=== PATIENT | female | born 1960 | race African-American/Black ===

== ENCOUNTER 2020-03-07 15:36 | Outpatient (REF) | payer MEDICARE, SELFPAY ==
--- NOTE | 2020-03-07 | MM_ITS ---
EXAMINATION: MM SCREENING DIGITAL BREAST BILATERAL CLINICAL INFORMATION: Screening. Asymptomatic. Patient done without cholelithiasis due to being where atrial valve The lifetime risk of breast cancer based on the Tyrer-Cuzick Model is 6.8%. COMPARISON: Mammography: February 03, 2019 and studies dating back to August 19, 2016 TECHNIQUE: 2-D full-field imaging performed in craniocaudal and mediolateral oblique views along with computer-aided detection (CAD). FINDINGS: The breasts are heterogeneously dense, which may obscure small masses (ACR BI-RADS breast composition Category c). There are no significant masses, abnormal calcifications, or other abnormalities. MM/MM tomosynthesis screening BI IMPRESSION: There are no significant changes from prior study. ASSESSMENT: BI-RADS 1: Negative RECOMMENDATION: Routine annual mammography screening. This patient's information was entered into a reminder system with a target due date for their next mammogram.
== END 2020-03-07 15:37 | disposition home or self-care (01) ==
LOC: HO.MAMMO 15:36
PROVIDERS: PCP Nurse Practitioner Family; Visit Provider Nurse Practitioner Family
DX: Z12.31 Encounter for screening mammogram for malignant neoplasm of breast (principal)
CPT/HCPCS: 77063; 77067

== ENCOUNTER 2021-06-21 13:23 | Outpatient (REF) | payer MEDICARE, SELFPAY ==
--- NOTE | ~2021-06-21 | MM_ITS ---
EXAMINATION: MM SCREENING DIGITAL BREAST TOMOSYNTHESIS, BILATERAL CLINICAL INFORMATION: Screening. Asymptomatic. The lifetime risk of breast cancer based on the Tyrer-Cuzick Model is 7%. COMPARISON: Mammography: 03/07/2020, 02/03/2019, 01/18/2018 TECHNIQUE: Digital breast tomosynthesis is performed in both the craniocaudal and mediolateral oblique views along with computer-aided detection (CAD). Synthesized 2D images are generated from the tomosynthesis. FINDINGS: There are scattered areas of fibroglandular density (ACR BI-RADS breast composition Category b). There are no significant masses, abnormal calcifications, or other abnormalities. Parenchymal pattern is similar to prior studies. There are no significant changes. MM/MM tomosynthesis screening BI IMPRESSION: No mammographic evidence of malignancy. ASSESSMENT: BI-RADS 1: Negative RECOMMENDATION: Routine annual mammography screening. This patient's information was entered into a reminder system with a target due date for their next mammogram.
== END 2021-06-21 13:24 | disposition home or self-care (01) ==
LOC: HO.MAMMO 13:23
PROVIDERS: Visit Provider Nurse Practitioner Family
DX: Z12.31 Encounter for screening mammogram for malignant neoplasm of breast (principal)
CPT/HCPCS: 77063; 77067

== ENCOUNTER 2022-12-25 14:29 | Outpatient (REF) | payer MEDICARE, SELFPAY ==
--- NOTE | ~2022-12-25 | MM_ITS ---
EXAMINATION: MM SCREENING DIGITAL BREAST TOMOSYNTHESIS, BILATERAL CLINICAL INFORMATION: Screening. Asymptomatic. COMPARISON: Mammography: This study is compared with prior exams dating back to 2017. TECHNIQUE: Digital breast tomosynthesis is performed in both the craniocaudal and mediolateral oblique views along with computer-aided detection (CAD). Synthesized 2D images are generated from the tomosynthesis. FINDINGS: The breasts are heterogeneously dense, which may obscure small masses (ACR BI-RADS breast composition Category c). There are no significant masses, abnormal calcifications, or other abnormalities. The volume of fat within the breast in the subcutaneous tissues has decreased since the prior mammogram from June 2021. 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 MM/MM tomosynthesis screening BI IMPRESSION: No mammographic evidence of malignancy. Evidence of significant weight loss. Clinical correlation recommended. ASSESSMENT: BI-RADS BI-RADS 1 - Negative RECOMMENDATION: Routine annual mammography screening. 1 year F/U This examination should not preclude the clinical evaluation of a suspicious palpable abnormality. This patient's information was entered into a reminder system with a target due date for their next mammogram.
== END 2022-12-25 14:30 | disposition home or self-care (01) ==
LOC: HO.MAMMO 14:29
PROVIDERS: Visit Provider Nurse Practitioner Family
DX: Z12.31 Encounter for screening mammogram for malignant neoplasm of breast (principal)
CPT/HCPCS: 77063; 77067

== ENCOUNTER → 2022-12-25 14:45 | Outpatient (BNV) | payer MEDICARE, SELFPAY | PROVIDERS: Visit Provider Radiology Diagnostic Radiology | DX: Z12.31 Encounter for screening mammogram for malignant neoplasm of breast (principal) | CPT/HCPCS: 77063; 77067 ==

== ENCOUNTER 2024-12-02 14:26 | Outpatient (REF) | payer MEDICARE, OTHER, SELFPAY ==
--- OUTSIDE RECORDS SUMMARY | 2024-12-02 14:28 | XMS_ITS ---
Author Name [facility] Organization Unknown Care Team Organization Name Specialty Phone Email Start Date End Da te [facility] 11/30/2019 12/26/2019
--- OUTSIDE RECORDS SUMMARY | 2024-12-02 14:28 | XMS_ITS | Clinical Summary ---
Author Organization [address] [facility] Address [address] [place] [address] Phone Care Team Providers Care Slot Tag Inserter Name Role Phone Marck Shah MD Primary Care Provider [phone] Allergies No known active allergies Medications diazePAM (Valium) 5 mg tablet Take 2 tablets (10 mg total) by mouth 2 (two) times a day. Max Daily Amount: 20 mg 09/01/2011 Active multivitamin with minerals tablet Take 1 tablet by mouth 1 (one) time each day. Active lactulose (CHRONULAC) solution Take 15 mL (10 g total) by mouth 1 (one) time each day. 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 Surgical History Surgery Date Site/Laterality Comments COLONOSCOPY Medical History Medical History Date Comments Stiff person syndrome Colon polyp Stiff person syndrome Social History Tobacco Use Types Packs/Day Years Used Date Smoking Tobacco: Never Smokeless Tobacco: Never Tobacco Cessation:Counseling Given: Not Answered Alcohol Use Standard Drinks/Week Comments Not Currently 0 (1 standard drink = 0.6 oz pur e alcohol) Interpersonal Safety Answer Date Record ed Physical Abuse 06/10/2024 Verbal Abuse 06/10/2024 Comments No Sex and Gender Information Value Date Recorded Sex Assigned at Not on file Legal Sex Female 6:06 AM EST Gender Identity Not on file Sexual Orientation Not on file Obstetrics History Last Filed Vital Signs Vital Sign Reading Time Taken Comments Blood Pressure 114/90 06/10/2024 10:53 AM EST Pulse 70 06/10/2024 10:53 AM EST Temperature 35.9 C (96.6 F) 06/10/2024 9:55 AM EST Respiratory Rate 15 06/10/2024 10:53 AM EST Oxygen Saturation 100% 06/10/2024 10:53 AM EST Inhaled Oxygen Concentration - - Weight 61.2 kg (135 lb) 06/10/2024 9:55 AM EST Height 176.8 cm (5' 9.6 ) 06/10/2024 9:55 AM EST Body Mass Index 19.59 06/10/2024 9:55 AM EST Plan of Treatment Health Maintenance Due Date Last Done Comments Breast Cancer Screening 1960 DTaP,Tdap,and Td Vaccines (1 - Tdap) 08/20/1978 Cervical Cancer Screening: P ap Smear 08/20/1980 Zoster Vaccines (1 of 2) 08/20/2009 Pneumococcal Vaccine: 50+ Years (2 of 2 - PCV) 06/23/2014 06/23/2013 Hepatitis C Screening 04/06/2022 Medicare Annual Wellness Visit 04/06/2022 Osteoporosis Screening (Bone Density Screening) 04/06/2022 Social Influencers of Health Screening 04/06/2022 COVID-19 Vaccine (1 - 2023-2 5 season) 2024 Depression Screening 05/04/2024 Falls Risk Assessment 08/20/2024 Influenza Vaccine (#1) 2025 06/16/2013 Colorectal Cancer Screening: Colonoscopy 08/04/2034 08/04/2024, 06/10/2024, 05/17/2014 RSV Immunization Adult Patients (1 - 1-dose 75+ series) 08/20/2034 HIB Vaccines Aged Out No longer eligi ble based on patient's age to complete this topic HPV Vaccines Aged Out No longer eligi ble based on patient's age to complete this topic Hepatitis A Vaccines Aged Out No long er eligible based on patient's age to complete this topic Hepatitis B Vaccines Aged Out No long er eligible based on patient's age to complete this topic IPV Vaccines Aged Out No longer eligi ble based on patient's age to complete this topic MMR Vaccines Aged Out No longer eligi ble based on patient's age to complete this topic Meningococcal ACWY Vaccine Aged Out N o longer eligible based on patient's age to complete this topic Meningococcal B Vaccine Aged Out No l onger eligible based on patient's age to complete this topic RSV Immunization Patients Under 20 months Aged Out No longer eligible b ased on patient's age to complete this topic Varicella Vaccines Aged Out No longer eligible based on patient's age to complete this topic Goals Goal Patient Goal Type Associated Problems Recent Progress Patient-Stated? Author LTGs General No [place] Argueta, PT Note: Pt will transfer stand-pivot toward left with w/walker and mod assist - not met Pt will transfer stand-pivot toward right with w/walker and mod assist - not met Pt will increase B ankle DF PROM to 5 degrees to improve standing balance - not met Pt will increase B hip extension PROM to 10 degrees for improved posture with standing functional mobility - not met Pt and caregivers will be independent with HEP - met Procedures Procedure Name Priority Date/Time Associated Diagnosis Comments EXTERNAL COLONOSCOPY REPORT Routine 08/04/2024 1:29 PM EDT from Last 3 Months or Most Recently Relevant to Health Maintenance Results * External Colonoscopy Report (08/04/2024 1:29 PM EDT) Anatomical Region Laterality Modality Endoscopy Historical Provider GI~PROCEDURE ORDERABLES F inal Result from Last 3 Months or Most Recently Relevant to Health Maintenance Insurance MEDICARE [place] - [place] [facility] Care Teams Slot Tag Inserter Relationship Specialty Start Date End Date Marck Shah MD [address] [place] [address] PCP - General Internal Medicine 03/16/24
== END 2024-12-02 14:27 | disposition home or self-care (01) ==
LOC: HO.MAMMO 14:26
PROVIDERS: Visit Provider General Practice
DX: Z12.31 Encounter for screening mammogram for malignant neoplasm of breast (principal)
CPT/HCPCS: 77063; 77067

== ENCOUNTER → 2024-12-02 14:30 | Outpatient (BNV) | payer MEDICARE, SELFPAY | PROVIDERS: Visit Provider Internal Medicine | DX: Z12.31 Encounter for screening mammogram for malignant neoplasm of breast (principal) | CPT/HCPCS: 77063; 77067 ==